=== PATIENT | male | born 1955 | race African-American/Black ===

== ENCOUNTER 2022-03-17 21:37 | Inpatient (IN) | payer MEDICARE, OTHER ==
[~2022-03-17] VITALS: Ht 175.3 cm; Wt 104.0 kg
--- NOTE | 2022-03-17 22:15 | NUR ---
BIBFAMILY C/O FEELING WEAK WITH POOR PO INTAKE FOR THE PAST FEW WEEKS. AMBULATORY, PLACED ON BED, AAOX4, BREATHING EVEN AND UNLABORED.
--- NOTE | 2022-03-17 22:39 | NUR ---
PARKING METER INSTALLER AT PT'S BEDSIDE
--- NOTE | 2022-03-17 22:42 | NUR ---
LAC #20G S/L BLOOD COLLECTED AND SENT TO LAB
--- NOTE | 2022-03-17 22:44 | NUR ---
SWAB FOR COVID19 SENT TO LAB
[2022-03-17 23:01] LABS: BASOPHILS % (AUTO) 0.8 % (0.0-2.0); EOSINOPHILS % (AUTO) 1.9 % (0.0-6.0); HEMATOCRIT 42 % (39-51); HEMOGLOBIN 13.6 g/dL (13.5-17.5); LYMPHOCYTES # (AUTO) 1.4 K/uL (0.8-4.8); LYMPHOCYTES % (AUTO) 26.8 % (20.0-44.0); MEAN CORPUSCULAR HGB CONC 32 g/dl (31.0-36.0); MEAN CORPUSCULAR VOLUME 88 fL (80-96); MONOCYTES # (AUTO) 0.8 K/uL (0.1-1.30); MONOCYTES % (AUTO) 14.8 % (2.0-12.0); NEUTROPHILS # (AUTO) 2.8 K/uL (1.8-8.9); NEUTROPHILS % (AUTO) 55.7 % (43.0-81.0); PLATELET COUNT (AUTO) 305 K/uL (150-450); WHITE BLOOD COUNT (AUTO) 5.1 K/uL (4.3-11.0)
[2022-03-17 23:14] LABS: ALANINE AMINOTRANSFERASE 19 U/L (12-78); ALBUMIN 3.6 g/dL (3.4-5.0); ALKALINE PHOSPHATASE 91 U/L (46-116); ASPARTATE AMINOTRANSFERASE 21 U/L (15-37); BILIRUBIN,DIRECT 0.2 mg/dL (0.0-0.2); BILIRUBIN,TOTAL 0.7 mg/dL (0.2-1.0); CALCIUM, SERUM 8.9 mg/dL (8.5-10.1); CARBON DIOXIDE 32 mmol/L (21-32); CHLORIDE 106 mmol/L (98-107); CREATININE 1.3 mg/dL (0.6-1.3); GLUCOSE 110 mg/dL (74-106); POTASSIUM 4.2 mmol/L (3.5-5.1); SODIUM SERUM 142 mmol/L (136-145); TOTAL PROTEIN, SERUM 7.3 g/dL (6.4-8.2); UREA NITROGEN, BLOOD 15 mg/dL (7-18)
--- NOTE | 2022-03-17 23:23 | NUR ---
PT BEING TRANSPORTED TO CT VIA [facility]
[2022-03-18 00:52] LABS: BILIRUBIN,URINE NEGATIVE (NEGATIVE); COLOR,URINE YELLOW (YELLOW); LEUKOCYTE ESTERASE ,URINE NEGATIVE (NEGATIVE); NITRITE, URINE NEGATIVE (NEGATIVE); PROTEIN,URINE NEGATIVE (NEGATIVE); UGLUCOSE NEGATIVE (NEGATIVE)
[2022-03-18] MEDS ORDERED: DEXTROSE 50%-WATER 50 ML DISP.SYRIN IV PRN (01:00)
[2022-03-18] MEDS ORDERED: ONDANSETRON HCL/PF 4 MG/2 ML VIAL IVP PRN (01:00)
[2022-03-18] MEDS ORDERED: ACETAMINOPHEN 325 MG TABLET PO PRN (01:00)
[2022-03-18] MEDS ORDERED: ZOLPIDEM TARTRATE 5 MG TABLET PO PRN (01:00)
[2022-03-18] MEDS ORDERED: MAGNESIUM HYDROXIDE 30 ML UDC PO PRN (01:00)
[2022-03-18] MEDS ORDERED: Z GUARD REMEDY 4 OZ OINT TP PRN (01:00)
[2022-03-18] MEDS ORDERED: MAG HYDROX/AL HYDROX/SIMETH 30 ML UDC PO PRN (01:00)
[2022-03-18] MEDS ORDERED: INSULIN REGULAR, HUMAN 100 UNIT/ML 3 ML VIAL SQ PRN (01:00)
--- NOTE | 2022-03-18 01:02 | NUR ---
REPORT GIVEN TO ORTEGA
[2022-03-18 01:33] LABS: BACTERIA,URINE Rare /HPF (None Seen); SQUAMOUS EPITHELIAL CELL,UR Few /HPF (None Seen)
[2022-03-18 01:35] LABS: RBC,URINE 0-2 /HPF (0-2)
--- NOTE | 2022-03-18 02:06 | NUR ---
PT TRANSPORTED TO UNIT ON [facility] WITH EMT AT BEDSIDE. PT IN STABLE CONDITION FOR TRANSPORT. PT AMBULATED FROM RNEY TO BED.
--- NOTE | 2022-03-18 02:10 | NUR ---
MS AUTHORIZATION SPECIALIST NOTE PT TRANSPORTED VIA GURNEY TO UNIT AT THIS TIME. PT ADMITTED TO MS UNIT FROM ER UNDER DATA ACQUISITION TECHNICIAN BRAN FOR ADMITTING DX WEAKNESS AND FAILURE TO THRIVE. A/OX3 AND ABLE TO MAKE NEEDS KNOWN. PT STABLE ON ROOM AIR. NO SOB OR S/S OF RESPIRATORY DISTRESS. BREATHING EVEN AND UNLABORED. PT IS AMBULATORY WITH ASSISTANCE D/T BLINDNESS AND WEAKNESS. NO COMPLAINTS OF PAIN OR DISCOMFORT AT THIS TIME. NOTED WITH BLE PITTING EDEMA. NOTED WITH WHITE DISCHARGE TO LEFT EYE. IV ACCESS LAC 20G, INTACT AND PATENT. ORIENTED TO UNIT, STAFF, AND ROOM. BELONGINGS ACCOUNTED FOR AND BELONGINGS LIST SIGNED. SAFETY PRECAUTIONS IN PLACE. BED IN LOWEST LOCKED POSITION, HOB ELEVATED, SIDE RAILS UP X3, AND CALL LIGHT AND TABLE WITHIN REACH. ALL NEEDS MET AT THIS TIME.
[2022-03-18 02:50] VITALS: BP 145/79
[2022-03-18] MEDS: BLOOD SUGAR DIAGNOSTIC 1 EACH STRIP IN SCH ×4 (06:33→22:07)
--- NOTE | 2022-03-18 06:58 | NUR ---
MS RN CLOSING NOTE PT RESTING IN BED, VERBALLY RESPONSIVE. A/OX3 AND ABLE TO MAKE NEEDS KNOWN. PT STABLE ON ROOM AIR. NO SOB OR S/S OF RESPIRATORY DISTRESS. BREATHING EVEN AND UNLABORED. NO COMPLAINTS OF PAIN OR DISCOMFORT AT THIS TIME. IV ACCESS LAC 20G, INTACT AND PATENT. SAFETY PRECAUTIONS IN PLACE. BED IN LOWEST LOCKED POSITION, HOB ELEVATED, SIDE RAILS UP X3, AND CALL LIGHT AND TABLE WITHIN REACH. ALL NEEDS MET AT THIS TIME AND WILL ENDORSE TO ONCOMING NURSE FOR ENRIQUE.
--- NOTE | 2022-03-18 07:30 | NUR ---
MS RN AM NOTE PT RESTING IN BED, A/OX3 AND ABLE TO MAKE NEEDS KNOWN. BLIND. ON ROOM AIR. NO SOB OR S/S OF RESPIRATORY DISTRESS. RESPIRATION UNLABORED.O2 SAT 97%. NO COMPLAINTS OF PAIN OR DISCOMFORT AT THIS TIME. IV ACCESS LAC 20G, INTACT AND PATENT. USES URINALS. CCHO DIET. POC DISCUSSED. VERBALIZED UNDERSTANDINGS.SAFETY PRECAUTIONS IN PLACE. BED IN LOWEST LOCKED POSITION, HOB ELEVATED, SIDE RAILS UP X3, AND CALL LIGHT AND TABLE WITHIN REACH. ALL NEEDS MET AT THIS TIME AND WILL ENDORSE TO ONCOMING NURSE FOR ENRIQUE.
[2022-03-18] MEDS: PANTOPRAZOLE 40 MG TABLET.DR PO SCH (07:49)
[2022-03-18 08:00] VITALS: BP_SYST 138; BP_SYST 140; BP_DIAS 70; BP_DIAS 77
--- NOTE | 2022-03-18 09:30 | NUR ---
RN NOTES DUE MEDS GIVEN
[2022-03-18] MEDS: CEFTRIAXONE 1 G in IV D5W 50 ML IV SCH ×2 (11:00→11:46)
[2022-03-18 11:35] LABS: BASOPHILS % (AUTO) 0.9 % (0.0-2.0); EOSINOPHILS % (AUTO) 2.8 % (0.0-6.0); HEMATOCRIT 40 % (39-51); HEMOGLOBIN 12.8 g/dL (13.5-17.5); LYMPHOCYTES # (AUTO) 1.5 K/uL (0.8-4.8); LYMPHOCYTES % (AUTO) 28.9 % (20.0-44.0); MEAN CORPUSCULAR HGB CONC 33 g/dl (31.0-36.0); MEAN CORPUSCULAR VOLUME 88 fL (80-96); MONOCYTES # (AUTO) 0.8 K/uL (0.1-1.30); MONOCYTES % (AUTO) 15.9 % (2.0-12.0); NEUTROPHILS # (AUTO) 2.6 K/uL (1.8-8.9); NEUTROPHILS % (AUTO) 51.5 % (43.0-81.0); PLATELET COUNT (AUTO) 272 K/uL (150-450); RED BLOOD CELL COUNT(AUTO) 4.51 MIL/uL (4.5-6.0)
--- NOTE | 2022-03-18 11:48 | NUR ---
RN NOTES ACCUCHECK 146MG/DL. REFUSED INSULIN. PATIENT ALSO REFUSED ANTIBIOTIC DESPITE EXPLAINING BENEFITS AND IMPORTANCE
[2022-03-18 11:53] LABS: CREATININE 1.1 mg/dL (0.6-1.3); PHOSPHORUS 3.8 mg/dL (2.5-4.9); POTASSIUM 3.9 mmol/L (3.5-5.1)
[2022-03-18 12:03] LABS: THYROID STIMULATING HORMONE 2.23 uIU/mL (0.358-3.74)
[2022-03-18] MEDS ORDERED: IV NS 0.9% 250 ML IV PRN (12:30)
[2022-03-18 16:00] VITALS: BP 138/70
--- NOTE | 2022-03-18 19:22 | NUR ---
MS RN CLOSING NOTE PT RESTING IN BED, A/OX3 AND ABLE TO MAKE NEEDS KNOWN. BLIND. ON ROOM AIR. NO SOB OR S/S OF RESPIRATORY DISTRESS. RESPIRATION UNLABORED.O2 SAT 97%. NO COMPLAINTS OF PAIN OR DISCOMFORT AT THIS TIME. IV ACCESS LAC 20G, INTACT AND PATENT. USES URINALS. CCHO DIET. SAFETY PRECAUTIONS IN PLACE. BED IN LOWEST LOCKED POSITION, HOB ELEVATED, SIDE RAILS UP X3, AND CALL LIGHT AND TABLE WITHIN REACH. ALL NEEDS MET AT THIS TIME AND WILL ENDORSE TO ONCOMING NURSE FOR ENRIQUE.
--- NOTE | 2022-03-18 19:22 | NUR ---
RN NOTES CORRECTION. WILL CONTINUE TO MONITOR
--- NOTE | 2022-03-18 19:30 | NUR ---
MS RN NOTES RECEIVED PATIENT AWAKE IN BED. PATIENT IS A/O TIMES 3. ON ROOM AIR. NO PAIN NOTED. NO SOB NOTED. NO DISTRESS NOTED. IV ACCESS ON THE LAC G # 20 INTACT AND PATENT. ABLE TO MAKE NEEDS KNOWN. PATIENT IS BLIND. ALL SAFETY MEASURES IN PLACE. BED LOCKED IN THE LOWEST POSITION. CALL LIGHT AND TABLE IN EASY REACH. SIDE RAILS UP TIMES 2. WILL CONTINUE TO MONITOR CLOSELY.
[2022-03-18 20:00] VITALS: BP 130/83
--- NOTE | 2022-03-18 22:00 | NUR ---
RN NOTES BLOOD SUGAR CHECKED WAS 130 AT 2200. PATIENT REFUSED INSULIN. OFFERED AND EXPLAINED THE MEDICATION NEED. BUT STILL REFUSING.
--- NOTE | 2022-03-19 06:57 | NUR ---
MS RN NOTES PATIENT AWAKE IN BED. PATIENT IS A/O TIMES 3. ON ROOM AIR. NO PAIN NOTED. NO SOB NOTED. NO DISTRESS NOTED. IV ACCESS ON THE LAC G # 20 INTACT AND PATENT. ABLE TO MAKE NEEDS KNOWN. PATIENT IS BLIND. ALL SAFETY MEASURES IN PLACE. BED LOCKED IN THE LOWEST POSITION. CALL LIGHT AND TABLE IN EASY REACH. SIDE RAILS UP TIMES 2. WILL ENDORSE FOR ENRIQUE.
--- NOTE | 2022-03-19 07:00 | NUR ---
MS RN OPENING NOTES: RECEIVED PT IN BED AWAKE, ALERT AND ORIENTED X 3 AND ABLE TO VERBALIZED NEEDS. NO SOB OR CARDIAC DISTRESS NOTED, ON ROOM AIR AND TOLERATED WELL. PT LEGALLY BLIND. IV ACCESS ON LAC GAUGE 20 PATENT,INTACT AND SALINE LOCKED. SAFETY MEASURES MAINTAINED: BED LOCKED AND IN LOWEST POSITION SIDE RAILS UP X 2 CALL LIGHT IN EASY REACH FOR HELP. WILL MONITOR ACCORDINGLY.
[2022-03-19] MEDS: PANTOPRAZOLE 40 MG TABLET.DR PO SCH (07:33)
[2022-03-19] MEDS: BLOOD SUGAR DIAGNOSTIC 1 EACH STRIP IN SCH ×4 (07:34→21:35)
[2022-03-19] MEDS: CEFTRIAXONE 1 G in IV D5W 50 ML IV SCH (10:52)
--- NOTE | 2022-03-19 10:53 | NUR ---
RN NOTES: PATIENT REFUSED IV ANTIBIOTICS, MD IS AWARE.
[2022-03-19 16:15] VITALS: BP 145/93
--- NOTE | 2022-03-19 18:46 | NUR ---
MS RN CLOSING NOTES: PATIENT IN BED ASLEEP EASILY AROUSED WITH STIMULI. A/O X3 AND ABLE TO MAKE NEEDS KNOWN. NO SOB OR CARDIAC DISTRESS NOTED, ON ROOM AIR AND TOLERATING WELL. PT LEGALLY BLIND. PT HAD EPISODES OF REFUSING MED. ON BS MONITORING AND NO SIGNS OF HYPO/HYPER GLYCEMIA, INSULIN ADMINISTRATION PER SL. IV ACCESS ON LAC GAUGE 20 PATENT,INTACT AND SL. PATIENT ABLE TO AMBULATE WITH ASSISTANCE. EATING HIS MEAL 50-75%. SAFETY MEASURES MAINTAINED: BED LOCKED AND IN LOWEST POSITION SIDE RAILS UP X2. CALL LIGHT AND BED SIDE TABLE IN EASY REACH. WILL ENDORSE TO ENVIRONMENTAL SPECIALIST RN FOR CONTINUITY OF CARE.
--- NOTE | 2022-03-19 19:30 | NUR ---
DARIO RN OPENING NOTE RECEIVED PATIENT SITTING IN BED, ALERT AND ORIENTED X3. ABLE TO COMMUNICATE NEEDS WITH THE STAFFS. AFEBRILE AND NOT IN ANY FORM OF ACUTE DISTRESS. PATIENT IS LEGALLY BLIND. NO C/O PAIN OR DISCOMFORT AT THIS TIME. WITH IV ACCESS ON L AC 20G-SL. SAFETY MEASURES IN PLACE. KEPT BED IN LOCKED AND IN LOW POSITION. SIDE RAILS UP X2. ADVISED TO USE THE CALL LIGHT WHEN IN NEED OF ASSISTANCE.
[2022-03-19 20:00] VITALS: BP 132/90
[2022-03-20] MEDS: BLOOD SUGAR DIAGNOSTIC 1 EACH STRIP IN SCH ×4 (06:33→22:46)
--- NOTE | 2022-03-20 06:42 | NUR ---
MS RN CLOSING NOTE PATIENT IN BED, ASLEEP BUT EASY TO AROUSE AND RESPONSIVE. ABLE TO COMMUNICATE NEEDS WITH THE STAFFS. AFEBRILE AND NOT IN ANY FORM OF ACUTE DISTRESS. BREATHING EVEN AND NON LABORED. PATIENT IS LEGALLY BLIND. NO C/O PAIN OR DISCOMFORT THROUGHOUT THE SHIFT. WITH IV ACCESS ON L AC 20G-SL. MONITORED FOR ANY S/SX. OF HYPO/HYPERGLYCEMIA. SAFETY MEASURES IN PLACE. KEPT BED IN LOCKED AND IN LOW POSITION. SIDE RAILS UP X2. ADVISED TO USE THE CALL LIGHT WHEN IN NEED OF ASSISTANCE. CONSTANT VISUAL CHECK DONE TO ENSURE SAFETY. ALL NURSING NEEDS ATTENDED. ENDORSED TO INCOMING SHIFT FOR CONTINUITY OF CARE.
--- NOTE | 2022-03-20 07:00 | NUR ---
MS RN OPENING NOTES: RECEIVED PT IN BED AWAKE, ALERT AND ORIENTED X 4 AND ABLE TO VERBALIZED NEEDS. NO SOB OR CARDIAC DISTRESS NOTED, ON ROOM AIR AND TOLERATED WELL. PT LEGALLY BLIND. IV ACCESS ON LAC GAUGE 20 PATENT,INTACT AND SALINE LOCKED. SAFETY MEASURES MAINTAINED: BED LOCKED AND IN LOWEST POSITION SIDE RAILS UP X 2 CALL LIGHT IN EASY REACH FOR HELP. WILL MONITOR ACCORDINGLY.
[2022-03-20] MEDS: PANTOPRAZOLE 40 MG TABLET.DR PO SCH ×2 (07:25→07:30)
[2022-03-20 08:00] VITALS: BP 132/84
[2022-03-20] MEDS: CEFTRIAXONE 1 G in IV D5W 50 ML IV SCH (10:37)
--- NOTE | 2022-03-20 14:49 | NUR ---
SS consult requested over the weekend for "Dementia". SW will follow up at a later time and provided resources.
[2022-03-20 16:00] VITALS: BP 142/94
--- NOTE | 2022-03-20 18:44 | NUR ---
MS RN CLOSING NOTES: PATIENT IN BED ASLEEP EASILY AROUSED WITH STIMULI. A/O X3 AND ABLE TO MAKE NEEDS KNOWN. NO SOB OR CARDIAC DISTRESS NOTED, ON ROOM AIR AND TOLERATING WELL. PT LEGALLY BLIND. PT HAD EPISODES OF REFUSING MED. ON BS MONITORING AND NO SIGNS OF HYPO/HYPER GLYCEMIA, INSULIN ADMINISTRATION PER SL. IV ACCESS ON LAC GAUGE 20 PATENT,INTACT AND SL. PATIENT ABLE TO AMBULATE WITH ASSISTANCE. EATING HIS MEAL 50%. SAFETY MEASURES MAINTAINED: BED LOCKED AND IN LOWEST POSITION SIDE RAILS UP X2. CALL LIGHT AND BED SIDE TABLE IN EASY REACH. WILL ENDORSE TO MACHINE SAND MIXER RN FOR CONTINUITY OF CARE.
[2022-03-20 20:00] VITALS: BP 127/76
--- NOTE | 2022-03-21 07:01 | NUR ---
MS RN CLOSING NOTES: PATIENT IN BED ASLEEP EASILY AROUSED WITH STIMULI. A/O X3 AND ABLE TO MAKE NEEDS KNOWN. NO SOB OR CARDIAC DISTRESS NOTED, ON ROOM AIR AND TOLERATING WELL. PT LEGALLY BLIND. PT HAD EPISODES OF REFUSING MED. ON BS MONITORING AND NO SIGNS OF HYPO/HYPER GLYCEMIA. REFUSED BLOOD SUGAR MONITORING THIS AM. IV ACCESS ON LAC GAUGE 20 PATENT,INTACT AND SL. PATIENT ABLE TO AMBULATE WITH ASSISTANCE. EATING HIS MEAL 50%. SAFETY MEASURES MAINTAINED: BED LOCKED AND IN LOWEST POSITION SIDE RAILS UP X2. CALL LIGHT AND BED SIDE TABLE IN EASY REACH. WILL ENDORSE TO DAY SHIFT RN FOR CONTINUITY OF CARE.
[2022-03-21] MEDS: BLOOD SUGAR DIAGNOSTIC 1 EACH STRIP IN SCH ×2 (07:30→12:14)
[2022-03-21 08:00] VITALS: BP 123/80
[2022-03-21] MEDS: PANTOPRAZOLE 40 MG TABLET.DR PO SCH (08:42)
[2022-03-21] MEDS: CEFTRIAXONE 1 G in IV D5W 50 ML IV SCH (11:00)
--- NOTE | 2022-03-21 13:37 | NUR ---
RN D/C Note-Continuity of Care [facility] [address] [place] [address] jeniffer garcia/ Eda Provided report and patients current status. Per CM transportation arranged ETA 3pm
--- NOTE | 2022-03-21 15:51 | NUR ---
RN D/C Note Patient AOx4, meets d/c criteria. Patient agrees with discharge to health care facility. [facility] transport unit #[id number] [employer] Report given, VSS, pt transferred out of unit safely.
[2022-03-21 15:53] VITALS: BP 132/70
== END 2022-03-21 15:15 | DRG 641 ==
LOC: ER 21:52 → MED 03-18 00:48
PROVIDERS: ADMIT Nurse Practitioner Acute Care
DX: R62.7 Adult failure to thrive (principal); E66.9 Obesity, unspecified; F03.90 Unspecified dementia, unspecified severity, without behavioral disturbance, psychotic disturbance, mood disturbance, and anxiety; Z20.822 Contact with and (suspected) exposure to COVID-19; E11.9 Type 2 diabetes mellitus without complications; I10 Essential (primary) hypertension; F29 Unspecified psychosis not due to a substance or known physiological condition; Z68.32 Body mass index [BMI] 32.0-32.9, adult
CPT/HCPCS: 36415; 70450-TC; 71045-TC; 80048-TC; 80061-TC; 80076-TC; 81001; 82962-TC; 83735-TC; 84100-TC; 84443-TC; 84484-TC; 85025-TC; 85730-TC; 87081-TC; 97112-TC; 97116-TC; 97530-TC; C9803; G0378; J0696; J1815; J7050; J7060